=== PATIENT | female | born 1980 | race Two or more races ===

== ENCOUNTER 2017-12-24 16:27 | Emergency (ER) | payer SELFPAY ==
[~2017-12-24] VITALS: Ht 167.6 cm; Wt 62.6 kg
[2017-12-24] MEDS ORDERED: ALBUTEROL SULFATE 2.5 MG/3 ML NEBU. NEB ONE (17:00)
[2017-12-24] MEDS ORDERED: DEXAMETHASONE SOD PHOS 20 MG/5 ML VIAL. PO ONE (17:00)
--- NOTE | 2017-12-24 17:10 | PHYS DOC ---
Past Medical History Past Medical History: Asthma Past Surgical History: No Surgical History Alcohol Use: None Drug Use: None Adult General Chief Complaint Chief Complaint: ASTHMA HPI HPI Patient is a 37 year old female who presents to the emergency Department today with complaints of having asthma problems today. She denies any fever, cough, runny nose, nasal congestion. States the symptoms started earlier this morning. She denies any chest pain, nausea, diarrhea, fever, sore throat, or ear pain. She states she is a smoker she smokes approximately 2 or 3 cigarettes a day. Review of Systems Review of Systems Constitutional: Denies fever or chills [] HENT: Denies nasal congestion or sore throat [] Respiratory: Denies cough reports shortness of breath and wheezing started today. Cardiovascular: Denies chest pain GI: Denies abdominal pain, nausea, vomiting, or diarrhea [] Musculoskeletal: Denies back pain or joint pain [] Integument: Denies rash or skin lesions [] Neurologic: Denies headache, focal weakness or sensory changes [] Current Medications Current Medications Current Medications Medications (Trade) Dose Ordered Sig/Surendra Start Time Stop Time Status Last Admin Dose Admin Albuterol Sulfate (Ventolin Neb Soln) 2.5 mg 1X ONCE 12/24/17 17:00 12/24/17 17:01 DC 12/24/17 17:03 2.5 MG Dexamethasone Sodium Phosphate (Decadron) 10 mg 1X ONCE 12/24/17 17:00 12/24/17 17:01 DC 12/24/17 17:07 10 MG Allergies Allergies Allergies Coded Allergies Type Severity Reaction Last Updated Verified No Known Drug Allergies 05/14/14 No Physical Exam Physical Exam Constitutional: Well developed, well nourished, no acute distress, non-toxic appearance. [] HENT: Normocephalic, atraumatic, bilateral external ears normal, bilateral TMs normal, severe pharynx normal, oropharynx moist, no oral exudates, nose normal. [] Eyes: Normal Neck: Normal range of motion, no tenderness, supple, no stridor. [] Cardiovascular:Heart rate regular rhythm, no murmur [] Lungs & Thorax: Diminished bilaterally with diffuse expiratory wheezes Skin: Warm, dry, no erythema, no rash. [] Extremities: No cyanosis, no clubbing, no edema. [] Neurologic: Alert and oriented X 3, normal motor function, normal sensory function, no focal deficits noted. [] Psychologic: Affect normal, judgement normal, mood normal. [] Current Patient Data Vital Signs Vital Signs Date Time Temp Pulse Resp B/P (MAP) Pulse Ox O2 Delivery O2 Flow Rate FiO2 12/24/17 18:10 80 20 118/70 (86) 95 Room Air 12/24/17 16:57 97.9 97.9 EKG EKG [] Radiology/Procedures Radiology/Procedures Chest x-ray negative for any acute findings read by Dr. Faustin[] Course & Med Decision Making Course & Med Decision Making Pertinent Labs and Imaging studies reviewed. (See chart for details) Asthma exacerbation, resolved following albuterol treatment and 10 mg of po Decadron given. Refilled albuterol nebulizer vials as requested, prescription for prednisone 5 days. Advised patient to quit smoking. Patient verbalized an understanding of home care, medications, follow-up, and return to ED instructions and was in agreement with the plan of care. Staff Physician Addendum: I was working in the ER during the course of this patient's visit. I was available for consultation as needed, but I was not directly involved in the care of this patient. [] Dragon Disclaimer Dragon Disclaimer This electronic medical record was generated, in whole or in part, using a voice recognition dictation system. Departure Departure Impression: Primary Impression: Asthma with acute exacerbation Disposition: 01 HOME, SELF-CARE Condition: STABLE Referrals: NO PCP (PCP) Patient Instructions: Asthma Attacks, Prevention, Asthma, Adult, [place] Additional Instructions: Fill prescription(s) and use as directed. . Tylenol or ibuprofen prn pain/ fever. Increase clear fluids. Avoid triggers such as smoke, fragrance, dust, and pollen. Stop smoking. Follow-up with your primary care doctor in 1-2 days. Return to the emergency room if your symptoms worsen. Scripts Prednisone (PREDNISONE) 50 Mg Tablet 1 TAB PO DAILY, #5 TAB 0 Refills Prov: KANG KUMAR APRN 12/24/17 Albuterol Sulfate (ALBUTEROL SULFATE CONC NEB SOLN) 2.5 Mg/0.5 Ml Vial.neb 1 VIAL NEB Q4HRS PRN for SHORTNESS OF BREATH, #120 VIAL 1 Refill Prov: KANG KUMAR APRN 12/24/17 Problem Qualifiers Primary Impression: Asthma with acute exacerbation Asthma severity: mild Asthma persistence: intermittent Qualified Codes: J45.21 - Mild intermittent asthma with (acute) exacerbation KANG KUMAR [employer] EN[employer] CONSULTANT Dec 24, 2017 17:10 JOSE ALBERTO FAUSTIN MD Dec 25, 2017 09:17
[2017-12-24] MEDS ORDERED: ALBU2.5V14 NEB (17:50)
[2017-12-24] MEDS ORDERED: PRED50TA PO (17:50)
[2017-12-24 18:10] VITALS: BP 118/70
--- NOTE | 2017-12-24 18:16 | RAD ---
PROCEDURE: CHEST PA LATERAL CLINICAL INDICATION: short of breath today, hx of asthma COMPARISON: None FINDINGS: No pneumothorax identified. Cardiac and mediastinal contours unremarkable. No pulmonary consolidation or acute airspace disease. No acute osseous abnormalities identified. IMPRESSION: No pulmonary consolidation or acute airspace disease. Electronically signed by: Dashawn Quarles DO (12/24/2017 6:13 PM) [facility]
== END 2017-12-24 18:12 | disposition home or self-care (01) ==
LOC: ER 16:27
DX: J45.901 Unspecified asthma with (acute) exacerbation (principal); F17.210 Nicotine dependence, cigarettes, uncomplicated
CPT/HCPCS: 71046; 94640; 99284; J1100; J7613